=== PATIENT | male | born 1975 | race Caucasian/White ===

== ENCOUNTER 2016-09-08 18:11 | Emergency (ER) | payer OTHER ==
--- NOTE | 2016-09-08 18:50 | RAD ---
ANKLE-RIGHT 3 VIEW History: Injury today. Comparison: None. Findings: Views of the right ankle were obtained. There is a subtle ossific density identified adjacent to the tip of the fibula which may reflect a small evulsion fracture fragment. The mortise joint remains intact. The talar dome contour is within expected. Prominent lateral soft tissue swelling is incidentally seen. Anterior and posterior calcaneal enthesophytes are identified. Impression: 1. A subtle avulsion fracture fragment involving the tip of the distal fibula. 2. Prominent lateral soft tissue swelling. 3. Anterior and posterior calcaneal spurs.
[2016-09-08] MEDS ORDERED: HYDROCODONE/ACETAMINOPHEN 5/325MG TABLET ONE (19:36)
== END 2016-09-08 18:18 | disposition home or self-care (01) ==
LOC: ED 18:11
DX: S82.831A Other fracture of upper and lower end of right fibula, initial encounter for closed fracture (principal); W17.89XA Other fall from one level to another, initial encounter; Y92.008 Other place in unspecified non-institutional (private) residence as the place of occurrence of the external cause
CPT/HCPCS: 73610; 99283; 29515; 99284; A9270